=== PATIENT | female | born 1990 | race Hispanic/Latino ===

== ENCOUNTER 2018-06-05 05:47 | Emergency (ER) | payer OTHER ==
[~2018-06-05 05:47] MED LIST: GUAI-1235 PO; PNV1TABL17 PO
[2018-06-05] MEDS ORDERED: FAMOTIDINE 20MG TAB 20 MG TAB ONE (06:48)
[2018-06-05] MEDS ORDERED: METOCLOPRAMIDE 10 MG TABLET ONE (06:48)
[2018-06-05] MEDS ORDERED: ONDANSETRON ODT 4 MG TAB ONE (06:49)
[2018-06-05 06:52] LABS: APPEARANCE,URINE Clear (CLEAR); BILIRUBIN,URINE Negative (NEGATIVE); COLOR,URINE Yellow (YELLOW); GLUCOSE, URINE (UA) Negative (NEGATIVE); KETONES,URINE Negative (NEGATIVE); LEUKOCYTE ESTERASE ,URINE Negative (NEGATIVE); NITRATE,URINE Negative (NEGATIVE); OCCULT BLOOD,URINE Negative (NEGATIVE); PROTEIN,URINE Negative (NEGATIVE); UROBILINOGEN,URINE 0.2 mg/dL (0.2-1.0)
[2018-06-05 07:07] LABS: HCG,QUAL RESULT NEGATIVE (NEGATIVE)
== END 2018-06-05 08:01 | disposition home or self-care (01) ==
LOC: EDH 05:47
DX: R19.7 Diarrhea, unspecified (principal); R11.2 Nausea with vomiting, unspecified; R10.30 Lower abdominal pain, unspecified; Z88.6 Allergy status to analgesic agent; F41.9 Anxiety disorder, unspecified
CPT/HCPCS: 81003; 81025